=== PATIENT | female | born 1960 | race Caucasian/White ===

== ENCOUNTER 2024-02-17 09:03 | Outpatient (CLI) | payer BC ==
[2024-02-17 10:06] LABS: Hematocrit 42.5 % (34.9-44.5); Hemoglobin 13.8 g/dL (12.0-15.5); Mean Corpuscular HGB CONC 32.5 g/dL (32.0-36.0); Mean Corpuscular Hemoglobin 28.2 pg (27.0-33.0); Mean Corpuscular Volume 86.9 fL (81.6-98.3); Mean Platelet Volume 12.1 fL (7.4-10.4); Platelet Count 222 10x3/uL (150-450); RBC Distribution Width 12.6 % (11.5-14.5); Red Blood Cell (RBC) Count 4.89 10x6/uL (3.90-5.03); White Blood Cell (WBC) Count 6.1 10x3/uL (3.5-10.5)
[2024-02-17 10:31] LABS: ALT (SGPT) 18 U/L (8-55); AST (SGOT) 19 U/L (5-34); Alkaline Phosphatase 62 U/L (40-110); Anion Gap 12 mmol/L (10-20); BUN (Urea Nitrogen) 13 mg/dL (9.8-20.1); Bilirubin, Total 0.8 mg/dL (0.2-1.2); Calc. Creatinine Clearance 0 mL/min (70-130); Calcium 9.3 mg/dL (7.8-10.44); Carbon Dioxide 24 mmol/L (23-31); Chloride 111 mmol/L (98-107); Estimated GFR 60; Globulin 2.3 g/dL (2.4-3.5); Glucose 88 mg/dL (80-115); Protein, Total 6.3 g/dL (5.8-8.1); Sodium 143 mmol/L (136-145)
== END 2024-02-17 09:04 | disposition home or self-care (01) ==
LOC: CSHLAB 09:03
PROVIDERS: ATTEND Surgery
DX: Z01.818 Encounter for other preprocedural examination (principal); K80.20 Calculus of gallbladder without cholecystitis without obstruction
CPT/HCPCS: 80053; 85027; 93005; 93010

== ENCOUNTER 2024-02-18 07:58 | Day surgery (SDC) | payer BC ==
[2024-02-17 09:33] VITALS: BMI 31.1
[2024-02-18] MEDS ORDERED: Indocyanine Green 25 MG/10 ML VIAL ONE (08:48)
[2024-02-18] MEDS ORDERED: Bupivacaine HCl 0.5%/Epinephrine 1:200,000/PF 30 ml Vial ONE (09:15)
[2024-02-18] MEDS ORDERED: PROPOFOL 20 ML ONE (09:53)
[2024-02-18] MEDS ORDERED: Dexamethasone 4 mg/ml Vial ONE (09:53)
[2024-02-18] MEDS ORDERED: Ondansetron PF 4 MG/2 ML Vial ONE (09:53)
[2024-02-18] MEDS ORDERED: fentaNYL 50 mcg/mL 1 mL Vial ONE ×5 (09:54→11:46)
[2024-02-18] MEDS ORDERED: Clindamycin/D5W 600 mg/50 ml Premix Bag ONE (09:56)
[2024-02-18] MEDS ORDERED: Lidocaine 2% PF 5 ML VIAL ONE (10:37)
[2024-02-18] MEDS ORDERED: Ketorolac Tromethamine 30 MG (1 mL) VIAL ONE (10:42)
[2024-02-18] MEDS ORDERED: SUGAMMADEX SODIUM 200 MG/2 ML VIAL ONE (10:54)
[2024-02-18] MEDS ORDERED: HYDROcodone/Acetaminophen 5/325 mg Tablet ONE (12:38)
== END 2024-02-18 13:20 | disposition home or self-care (01) ==
LOC: CSHSDC 07:58
PROVIDERS: ATTEND Surgery
PROC: 0FT44ZZ Resection of Gallbladder, Percutaneous Endoscopic Approach (ICD-10-PCS; principal; 2024-02-18)
DX: K80.10 Calculus of gallbladder with chronic cholecystitis without obstruction (principal); E66.3 Overweight
CPT/HCPCS: 88304; C1889; J1100; J1885; J2405; J2704; J3010; J3490